=== PATIENT | male | born 1990 | race Two or more races ===

== ENCOUNTER 2020-10-16 23:32 | Emergency (ER) | payer OTHER ==
[~2020-10-16 23:32] MED LIST: PRILOSEC OTC20 MG PO; PROTONIX40 MG PO
[2020-10-16 23:52] LABS: HEMOGLOBIN 15.4 gm/dl (14.0-17.5); RED BLOOD COUNT 5.29 M/UL (4.20-5.50)
[2020-10-17 00:43] LABS: BUN/CREATININE RATIO 21 (0-10)
[2020-10-17] MEDS ORDERED: ZOFRAN ODT 4 MG4 MG PO (02:43)
== END 2020-10-17 02:57 | disposition home or self-care (01) ==
LOC: ER1 23:32
PROVIDERS: Family Medicine
DX: R07.89 Other chest pain (principal); R10.9 Unspecified abdominal pain; R11.2 Nausea with vomiting, unspecified; M54.9 Dorsalgia, unspecified; Z98.84 Bariatric surgery status
CPT/HCPCS: 71045; 80053; 81001; 82550; 82553; 83690; 83874; 84484; 85025; 93005; 99285

== ENCOUNTER → 2022-05-17 | Outpatient (CLI) | payer OTHER ==
[~2022-05-17] MED LIST changes: +ZOFRAN ODT 4 MG4 MG PO
== END ==
LOC: SLEEP 13:58
DX: G47.30 Sleep apnea, unspecified (principal)
CPT/HCPCS: 95810